=== PATIENT | female | born 1950 | race Caucasian/White ===

== ENCOUNTER 2025-01-04 17:03 | Emergency (ER) | payer MEDICARE, OTHER ==
[~2025-01-04] VITALS: Ht 172.7 cm; Wt 109.1 kg
[2025-01-04 17:50] LABS: BASOPHILS % (AUTO) 0.2 % (0-1); EOSINOPHILS # (AUTO) 0.1 X10'3 (0-0.9); EOSINOPHILS % (AUTO) 0.9 % (0-6); HEMATOCRIT 43.6 % (35.0-45.0); HEMOGLOBIN 14.5 g/dl (12.0-16.0); LYMPHOCYTES # (AUTO) 0.9 X10'3 (1.1-4.8); LYMPHOCYTES % (AUTO) 5.7 % (21-51); MEAN CORPUSCULAR HEMOGLOBIN 30.8 PG (27.0-31.0); MEAN CORPUSCULAR HGB CONC 33.3 g/dL (33.0-36.5); MEAN CORPUSCULAR VOLUME 92.4 FL (78-98); MEAN PLATELET VOLUME 7.7 FL (7.4-10.4); MONOCYTES # (AUTO) 0.5 X10'3 (0-0.9); MONOCYTES % (AUTO) 3.1 % (2-12); NEUTROPHILS # (AUTO) 13.4 X10'3 (1.8-7.7); NEUTROPHILS % (AUTO) 90.1 % (42-75); PLATELET COUNT 230 X10'3 (140-440); RED BLOOD COUNT 4.71 X10'6 (4.20-5.60); RED CELL DISTRIBUTION WIDTH 14.9 % (11.5-14.5); WHITE BLOOD COUNT 14.9 X10'3 (4.5-11.0)
[2025-01-04 18:04] LABS: ALANINE AMINOTRANSFERASE 68 U/L (12-78); ALBUMIN 4.2 G/DL (3.4-5.0); ALKALINE PHOSPHATASE 95 IU/L (46-116); ANION GAP 6 (8-16); ASPARTATE AMINO TRANSFERASE 97 U/L (10-37); BILIRUBIN,TOTAL 2.1 MG/DL (0.1-1.0); BLOOD UREA NITROGEN 22 MG/DL (7-18); BUN/CREATININE RATIO 19.1 (10.0-20.0); CALCIUM 9.7 MG/DL (8.5-10.1); CHLORIDE 104 MMOL/L (99-107); CREATININE 1.15 MG/DL (0.40-0.90); GLUCOSE 137 MG/DL (70-104); POTASSIUM 3.9 MMOL/L (3.5-5.1); SODIUM 140 MMOL/L (135-145); TOTAL CARBON DIOXIDE 30.1 MMOL/L (24-32); TOTAL PROTEIN 8.5 G/DL (6.4-8.2); eCRCL 44 ML/MIN; eGFR 46 ML/MIN
[2025-01-04 18:15] LABS: PRO BRAIN NATRIURETIC PEPTIDE 518 PG/ML (0-125)
[2025-01-04 22:55] VITALS: TEMP 97.2
[2025-01-05] MEDS: famotidine 20mg tablet PO ONE (00:16)
[2025-01-05] MEDS: ondansetron 4mg rapidly disintigrating tab PO ONE (00:16)
[2025-01-05] MEDS: mag hydrox/Alum hydrox/simeth 30ml oral suspension PO ONE (00:16)
[2025-01-05] MEDS: LIDOcaine 2% Viscous 15ml cup MM ONE (00:17)
[2025-01-05 00:30] VITALS: BP 162/78; PULSE 77; RESP 15; O2SAT 99
[2025-01-05] MEDS ORDERED: pantoprazole 40 MG vial IV ONE (01:20)
[2025-01-05] MEDS ORDERED: PANT-47 PO (01:21)
[2025-01-05] MEDS: pantoprazole 40mg Tablet.DR PO ONE (01:45)
== END 2025-01-05 01:55 | disposition home or self-care (01) ==
LOC: ER 17:04
DX: K29.70 Gastritis, unspecified, without bleeding (principal); I48.91 Unspecified atrial fibrillation; Z88.0 Allergy status to penicillin
CPT/HCPCS: 36415; 71045; 80053; 83880; 84484; 85025; 93005; 99285

== ENCOUNTER 2025-03-20 09:27 | Day surgery (SDC) | payer MEDICARE, OTHER ==
[2025-03-16 11:15] LABS: BASOPHILS % (AUTO) 0.5 % (0-1); EOSINOPHILS # (AUTO) 1.2 X10'3 (0-0.9); EOSINOPHILS % (AUTO) 13.7 % (0-6); HEMATOCRIT 29.8 % (35.0-45.0); HEMOGLOBIN 9.5 g/dl (12.0-16.0); LYMPHOCYTES % (AUTO) 11.8 % (21-51); MEAN CORPUSCULAR HEMOGLOBIN 28.1 PG (27.0-31.0); MEAN CORPUSCULAR HGB CONC 31.8 g/dL (33.0-36.5); MEAN CORPUSCULAR VOLUME 88.6 FL (78-98); MEAN PLATELET VOLUME 8.3 FL (7.4-10.4); MONOCYTES # (AUTO) 0.7 X10'3 (0-0.9); MONOCYTES % (AUTO) 8.1 % (2-12); NEUTROPHILS # (AUTO) 5.5 X10'3 (1.8-7.7); NEUTROPHILS % (AUTO) 65.9 % (42-75); PLATELET COUNT 190 X10'3 (140-440); RED BLOOD COUNT 3.37 X10'6 (4.20-5.60); RED CELL DISTRIBUTION WIDTH 16.8 % (11.5-14.5); WHITE BLOOD COUNT 8.4 X10'3 (4.5-11.0)
[2025-03-16 11:25] LABS: APTT 38 SECONDS (22-32); INR 2.5 INR; PROTHROMBIN TIME 23.7 SECONDS (9.0-12.0)
[2025-03-16 11:29] LABS: ALBUMIN 3.2 G/DL (3.4-5.0); ANION GAP 10 (8-16); BLOOD UREA NITROGEN 21 MG/DL (7-18); CALCIUM 9.4 MG/DL (8.5-10.1); CHLORIDE 106 MMOL/L (99-107); CREATININE 1.62 MG/DL (0.40-0.90); GLUCOSE 85 MG/DL (70-104); HDL CHOLESTEROL 36 MG/DL (35-60); LDL CHOLESTEROL 8 MG/DL (50-100); POTASSIUM 3.9 MMOL/L (3.5-5.1); SODIUM 141 MMOL/L (135-145); TRIGLYCERIDES 40 MG/DL (20-135); eGFR 31 ML/MIN
[2025-03-16 11:35] LABS: CHOLESTEROL < 50 MG/DL (0-200)
[~2025-03-20] VITALS: Ht 172.7 cm; Wt 101.2 kg
[2025-03-20] VITALS (7 sets, daily range): BP systolic 102–122; BP diastolic 54–62; PULSE 56–111; RESP 15–22; TEMP 98; O2SAT 95–99
[~2025-03-20 09:27] MED LIST: PANT-47 PO
[2025-03-20] MEDS ORDERED: AMI200T PO (10:05)
[2025-03-20] MEDS ORDERED: METO-384 PO (10:05)
[2025-03-20] MEDS ORDERED: METO-411 PO (10:05)
[2025-03-20] MEDS ORDERED: FURO20TA4 PO (10:06)
[2025-03-20] MEDS ORDERED: SPIR25TA5 PO (10:06)
[2025-03-20] MEDS ORDERED: LOSA25TA41 PO (10:06)
[2025-03-20] MEDS ORDERED: WARF-55 (10:07)
[2025-03-20] MEDS ORDERED: ATOR40TA72 PO (10:07)
[2025-03-20] MEDS ORDERED: EMPA10TA PO (10:08)
[2025-03-20] MEDS ORDERED: CYAN-34 PO (10:09)
[2025-03-20] MEDS ORDERED: CHOL20003 PO (10:10)
[2025-03-20] MEDS ORDERED: MIDAZolam 1mg/ml 10ml vial IV ONE (10:40)
[2025-03-20] MEDS ORDERED: fentaNYL/PF 50MCG/1 ML 2ML syringe IV ONE (10:40)
[2025-03-20] MEDS ORDERED: normal saline 1000ml 1,000 ML IV SCH (10:40)
[2025-03-20] MEDS ORDERED: atropine 0.1mg/ml 10ml syringe ONE (11:47)
[2025-03-20] MEDS ORDERED: amiodarone 50MG/ML inj IV ONE (11:47)
[2025-03-20] MEDS ORDERED: fentaNYL/PF 50MCG/1 ML 2ML syringe ONE (12:03)
[2025-03-20] MEDS ORDERED: midazolam 1 mg/ML 2ml injection ONE (12:04)
--- NOTE | 2025-03-20 12:22 | OPERATIVE REPORT ---
Operative Report Providers to CC CC: JOSE ANGEL LOPEZ MD; MANNY BRYANT MD Operative Report CARDIOVERSION DATE: 03/20/25 ATTENDING PHYSICIAN: Manny Bryant MD INDICATION: Atrial Fibrillation MEDICATIONS: 1. Versed 2. Fentanyl PROCEDURE DETAILS: The patient was brought to the out-patient short stay area in a fasting state. Informed consent was obtained. The patient was given conscious sedation with a 2 mg of versed and 50 micrograms of fentanyl. Following adequate conscious sedation, a synchronized cardioversion was performed at 200 Joules (Biphasic). The patient was successfully converted from atrial fibrillation to sinus rhythm. The patient tolerated the procedure well with no complications. IMPRESSION: 1. Successful synchronized cardioversion with the patient converting from atrial fibrillation to sinus rhythm. RECOMMENDATIONS: 1. Continue current medication regimen, including anticoagulation with warfarin. 2. Follow-up in the office in 2-3 weeks time. MANNY BRYANT MD March 20, 2025 12:22
--- NOTE | 2025-03-20 13:11 | ELECTROCARDIOGRAPH REPORT ---
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 CONCEPCIÓN Kinsey Measurements Intervals [place] Rate: 58 P: 83 FL: 173 QRS: 67 QRSD: 124 T: 246 QT: 622 QTc: 612 Interpretive Statements Sinus bradycardia Right bundle branch block Baseline wander in lead(s) V3 Electronically Signed On 03-20-2025 17:36:[address] CONCEPCIÓN Kinsey Please click the below link to view image of tracing.
== END 2025-03-20 14:00 | disposition home or self-care (01) ==
LOC: SSTAY O 09:27
PROVIDERS: ATTEND Student in an Organized Health Care Education/Training Program
DX: I48.91 Unspecified atrial fibrillation (principal); E78.5 Hyperlipidemia, unspecified; I50.22 Chronic systolic (congestive) heart failure; Z79.899 Other long term (current) drug therapy; Z98.890 Other specified postprocedural states
CPT/HCPCS: 36415; 80048; 80061; 83695; 85025; 85610; 85730; 92960; 93005; J2250; J3010; J7030; 99152; J0282; J0461